=== PATIENT | female | born 1980 | race Caucasian/White ===

== ENCOUNTER 2019-01-26 20:56 | Emergency (ER) | payer BC, OTHER ==
[~2019-01-26] VITALS: Ht 157.5 cm; Wt 65.3 kg
--- NOTE | 2019-01-26 21:00 | NUR ---
PT BIBS. C/O HAVING A HAND LAC
[2019-01-26] MEDS ORDERED: LIDOCAINE 1%-EPI 1:100,000 20 ML VIAL ONE (21:59)
[2019-01-26] MEDS ORDERED: LIDOCAINE 1%-EPI 1:100,000 20 ML VIAL TP ONE (22:00)
[2019-01-26 23:20] VITALS: BP 128/81
== END 2019-01-26 23:21 | disposition home or self-care (01) ==
LOC: ER 20:58
DX: S61.412A Laceration without foreign body of left hand, initial encounter (principal); E03.9 Hypothyroidism, unspecified; Z98.890 Other specified postprocedural states; Z88.1 Allergy status to other antibiotic agents; W26.0XXA Contact with knife, initial encounter; Y93.89 Activity, other specified; Y92.89 Other specified places as the place of occurrence of the external cause; Y99.8 Other external cause status
CPT/HCPCS: 12001; 99283; A4606; A6403; J3490